=== PATIENT | female | born 1985 | race Two or more races ===

== ENCOUNTER 2019-09-16 19:31 | Emergency (ER) | payer OTHER ==
[~2019-09-16] VITALS: Ht 165.1 cm; Wt 90.9 kg
--- NOTE | 2019-09-16 19:52 | PHYS DOC ---
Adult General Chief Complaint Chief Complaint: SHORTNESS OF BREATH HPI HPI 34-year-old female presents to the emergency department complaints of cough x1 week, dizziness x2 days, shortness of breath today. Patient denies any fever, she does describe chest pain with cough. Patient denies abdominal pain nausea or vomiting. She did not receive her influenza vaccine. EKG reviewed normal sinus rhythm, heart rate 83. Nothing makes her symptoms better. She is tried no tvie-fin-dyueogf medications. Review of Systems Review of Systems Constitutional: Denies fever or chills [] Eyes: Denies change in visual acuity, redness, or eye pain [] HENT: Denies nasal congestion or sore throat [] Respiratory: Cough, shortness of breath Cardiovascular: No additional information not addressed in HPI [] GI: Denies abdominal pain, nausea, vomiting, bloody stools or diarrhea [] : Denies dysuria or hematuria [] Musculoskeletal: Denies back pain or joint pain [] Integument: Denies rash or skin lesions [] Neurologic: Denies headache, focal weakness or sensory changes [] All other systems were reviewed and found to be within normal limits, except as documented in this note. Current Medications Current Medications Current Medications Medications (Trade) Dose Ordered Sig/Stefani Start Time Stop Time Status Last Admin Dose Admin Sodium Chloride 1,000 ml @ 1,000 mls/hr Q1H 09/16/19 20:00 09/16/19 20:59 09/16/19 20:00 1,000 MLS/HR Allergies Allergies Allergies Coded Allergies Type Severity Reaction Last Updated Verified No Known Drug Allergies 09/16/19 No Physical Exam Physical Exam Constitutional: Well developed, well nourished, no acute distress, non-toxic appearance. [] HENT: Normocephalic, atraumatic, bilateral external ears normal, oropharynx moist, no oral exudates, nose normal. [] Eyes: PERRLA, EOMI, conjunctiva normal, no discharge. [] Cardiovascular:Heart rate regular rhythm, no murmur [] Lungs & Thorax: Bilateral breath sounds clear to auscultation [] Abdomen: Bowel sounds normal, soft, no tenderness, no masses, no pulsatile masses. [] Skin: Warm, dry, no erythema, no rash. [] Back: No tenderness, no CVA tenderness. [] Extremities: No tenderness, no edema. [] Neurologic: Alert and oriented X 3, no focal deficits noted. [] Psychologic: Affect normal, judgement normal, mood normal. [] Current Patient Data Vital Signs Vital Signs Date Time Temp Pulse Resp B/P (MAP) Pulse Ox O2 Delivery O2 Flow Rate FiO2 09/16/19 19:37 98.6 87 16 168/106 (126) 100 Room Air 98.6 Lab Values Laboratory Tests Test 09/16/19 19:40 09/16/19 19:46 09/16/19 19:48 09/16/19 19:56 Urine Collection Type Unknown Urine Color Yellow Urine Clarity Cloudy Urine pH 6.0 (<5.0-8.0) Urine Specific Earle >=1.030 (1.000-1.030) Urine Protein Negative mg/dL (NEG-TRACE) Urine Glucose (UA) Negative mg/dL (NEG) Urine Ketones (Stick) Negative mg/dL (NEG) Urine Blood Negative (NEG) Urine Nitrite Negative (NEG) Urine Bilirubin Small (NEG) Urine Urobilinogen Dipstick 1.0 mg/dL (0.2 mg/dL) Urine Leukocyte Esterase Negative (NEG) Urine RBC Occ /HPF (0-2) Urine WBC 0 /HPF (0-4) Urine Squamous Epithelial Cells Many /LPF Urine Bacteria Moderate /HPF (0-FEW) Urine Mucus Marked /LPF Influenza Type A Antigen Negative (NEGATIVE) Influenza Type B Antigen Negative (NEGATIVE) POC Urine HCG, Qualitative Hcg negative (Negative) White Blood Count 11.2 x10^3/uL (4.0-11.0) H Red Blood Count 4.53 x10^6/uL (3.50-5.40) Hemoglobin 14.1 g/dL (12.0-15.5) Hematocrit 40.2 % (36.0-47.0) Mean Corpuscular Volume 89 fL (79-100) Mean Corpuscular Hemoglobin 31 pg (25-35) Mean Corpuscular Hemoglobin Concent 35 g/dL (31-37) Red Cell Distribution Width 12.8 % (11.5-14.5) Platelet Count 264 x10^3/uL (140-400) Neutrophils (%) (Auto) 47 % (31-73) Lymphocytes (%) (Auto) 42 % (24-48) Monocytes (%) (Auto) 9 % (0-9) Eosinophils (%) (Auto) 2 % (0-3) Basophils (%) (Auto) 1 % (0-3) Neutrophils # (Auto) 5.2 x10^3/uL (1.8-7.7) Lymphocytes # (Auto) 4.7 x10^3/uL (1.0-4.8) Monocytes # (Auto) 1.0 x10^3/uL (0.0-1.1) Eosinophils # (Auto) 0.2 x10^3/uL (0.0-0.7) Basophils # (Auto) 0.1 x10^3/uL (0.0-0.2) D-Dimer (Antonia) < 0.27 ug/mlFEU Troponin I Quantitative < 0.017 ng/mL (0.000-0.055) VX-Lpu-S-Type Natriuretic Peptide 32 pg/mL (0-124) Laboratory Tests 09/16/19 19:56 EKG EKG EKG reviewed, 1947, heart rate 83, normal axis, no STEMI, normal sinus rhythm [] Radiology/Procedures Radiology/Procedures [facility] [address] [place] [address] IMAGING REPORT Signed PATIENT: GABINO MATOS ACCOUNT: [id number] : 1985 LOCATION: ER AGE: 34 SEX: F EXAM STATUS: REG ER ORD. PHYSICIAN: CESAR CISNEROS MD REASON: SOB PROCEDURE: PORTABLE CHEST 1V Exam: Chest one view INDICATION: Short of breath TECHNIQUE: Frontal view of the chest Comparisons: None FINDINGS: The cardiomediastinal silhouette and pulmonary vessels are within normal limits. The lung and pleural spaces are clear. IMPRESSION: No acute cardiopulmonary process. Electronically signed by: Bubba Hernandez MD (09/16/2019 8:19 PM) [id number] DICTATED and SIGNED BY: BBUBA HERNANDEZ MD DATE: 09/16/192018 [] Course & Med Decision Making Course & Med Decision Making Pertinent Labs and Imaging studies reviewed. (See chart for details) []34-year-old female presents to the emergency department complaints of cough x1 week, dizziness x2 days, shortness of breath today. Patient denies any fever, she does describe chest pain with cough. Patient denies abdominal pain nausea or vomiting. She did not receive her influenza vaccine. EKG reviewed normal sinus rhythm, heart rate 83. Nothing makes her symptoms better. She is tried no qndv-poy-kodscrj medications. X-ray of the chest reveals no consolidation, pulmonary edema Influenza negative, white blood cell count, urinalysis unremarkable Patient without wheeze. Recommend follow-up with primary care physician as an outpatient Albuterol prescription provided Dragon Disclaimer Dragon Disclaimer This electronic medical record was generated, in whole or in part, using a voice recognition dictation system. Departure Departure Impression: Primary Impression: Dyspnea Additional Impression: Cough Disposition: HOME, SELF-CARE Condition: STABLE Referrals: KARLA LOBO MD (PCP) Patient Instructions: Shortness of Breath, Hjyg-le-Fslu Additional Instructions: Chest xray negative for fluid/consolidation Labs reviewed - influenza negative, ddimer normal limits Albuterol inhaler upon discharge - you did not have wheeze on exam Tylenol as needed for fever If you develop fever, recommend quarantine for 14 days Return to the ER with worsening respiratory symptoms, inability to breath Scripts Albuterol Sulfate (PROAIR HFA INHALER) 8.5 Gm Hfa.aer.ad 2 PUFF INH PRN Q6HRS PRN for SHORTNESS OF BREATH, #1 INHALER 0 Refills Prov: CESAR CISNEROS MD 09/16/19 Problem Qualifiers Primary Impression: Dyspnea Dyspnea type: unspecified Qualified Codes: R06.00 - Dyspnea, unspecified CESAR CISNEROS MD Sep 16, 2019 19:52
[2019-09-16 19:53] LABS: BILIRUBIN,URINE SMALL (NEG); CLARITY,URINE CLOUDY; COLOR,URINE YELLOW; NITRITE,URINE NEGATIVE (NEG); PROTEIN,URINE NEGATIVE (NEG-TRACE)
[2019-09-16 20:00] LABS: BACTERIA,URINE MODERATE /HPF (0-FEW); RBC,URINE OCC /HPF (0-2); SQUAMOUS EPITHELIAL CELL,UR MANY /LPF; WBC,URINE 0 /HPF (0-4)
[2019-09-16] MEDS ORDERED: IV NORMAL SALINE 1000ML BAG 1,000 ML IV SCH (20:00)
[2019-09-16 20:05] LABS: BASO # 0.1 x10^3/uL (0.0-0.2); BASO % 1 % (0-3); EOS # 0.2 x10^3/uL (0.0-0.7); EOS % 2 % (0-3); HEMATOCRIT 40.2 % (36.0-47.0); HEMOGLOBIN 14.1 g/dL (12.0-15.5); LYMPH # 4.7 x10^3/uL (1.0-4.8); LYMPH % 42 % (24-48); MEAN CORPUSCULAR HEMOGLOBIN 31 pg (25-35); MEAN CORPUSCULAR HGB CONC 35 g/dL (31-37); MEAN CORPUSCULAR VOLUME 89 fL (79-100); MONO % 9 % (0-9); NEUT # 5.2 x10^3/uL (1.8-7.7); NEUT % 47 % (31-73); PLATELET COUNT 264 x10^3/uL (140-400); RED BLOOD COUNT 4.53 x10^6/uL (3.50-5.40); RED CELL DISTRIBUTION WIDTH 12.8 % (11.5-14.5); WHITE BLOOD COUNT 11.2 x10^3/uL (4.0-11.0)
--- NOTE | 2019-09-16 20:22 | RAD ---
Exam: Chest one view INDICATION: Short of breath TECHNIQUE: Frontal view of the chest Comparisons: None FINDINGS: The cardiomediastinal silhouette and pulmonary vessels are within normal limits. The lung and pleural spaces are clear. IMPRESSION: No acute cardiopulmonary process. Electronically signed by: Bubba Warren MD (09/16/2019 8:19 PM) [id number]
[2019-09-16 20:30] LABS: INFLUENZA A PATIENT NEGATIVE (NEGATIVE); INFLUENZA B PATIENT NEGATIVE (NEGATIVE)
[2019-09-16 20:33] LABS: CALCIUM 8.9 mg/dL (8.5-10.1); CREATININE 0.8 mg/dL (0.6-1.0); GFR 81.6; POTASSIUM 3.9 mmol/L (3.5-5.1)
[2019-09-16] MEDS ORDERED: ALBU2.5V8 INH (20:38)
[2019-09-16 20:39] VITALS: BP 123/77
[2019-09-16 20:39] LABS: ALBUMIN 3.5 g/dL (3.4-5.0); ALBUMIN/GLOBULIN RATIO 1.1 (1.0-1.7); TOTAL BILIRUBIN 0.2 mg/dL (0.2-1.0); TOTAL PROTEIN 6.8 g/dL (6.4-8.2)
--- NOTE | 2019-09-16 21:43 | EKG ---
[facility] [address] [place] [address] Test Date: 2019-09-16 Test Time: 19:44:43 Pat Name: GABINO MATOS Department: Room: Gender: F [employer] Machine: : 1985 Requested By: CESAR CISNEROS Order Number: [id number] Reading MD: Measurements Intervals [place] Rate: 83 P: 36 IA: 152 QRS: 47 QRSD: 80 T: 19 QT: 370 QTc: 440 Interpretive Statements SINUS RHYTHM NORMAL ECG RI6.01 No previous ECG available for comparison
== END 2019-09-16 20:40 | disposition home or self-care (01) ==
LOC: ER 19:31
DX: R06.02 Shortness of breath (principal); R05 Cough; R42 Dizziness and giddiness
CPT/HCPCS: 36415; 71045; 80053; 81001; 81025; 83880; 84484; 85025; 85379; 87086; 87804; 93005; 96360; 99285; J7030

== ENCOUNTER → 2020-08-14 | Outpatient (CLI) | payer BC, OTHER ==
[~2020-08-14] MED LIST: ALBU2.5V8 INH
--- NOTE | 2020-08-15 02:42 | RAD ---
PA and lateral chest radiographs 08/14/2020 CLINICAL HISTORY: Pleuritic chest pain and malaise. PA and lateral digital radiographs of the chest were obtained. Comparison study is dated 09/16/2019. The cardiac and mediastinal silhouettes are within normal limits in size and configuration. No pulmon jose f infiltrate is seen. No pleural effusion or pneumothorax is noted. Mild degenerative changes are s een involving the thoracic spine. IMPRESSION: No acute abnormality is seen. Electronically signed by: Jassi Prajapati MD (08/15/2020 2:40 AM) [id number]
== END ==
LOC: RAD 16:27
PROVIDERS: ATTEND Physician Assistant Medical
DX: R07.81 Pleurodynia (principal); R53.81 Other malaise
CPT/HCPCS: 71046

== ENCOUNTER → 2021-10-18 | Outpatient (CLI) | payer BC, OTHER ==
--- NOTE | 2021-10-18 12:46 | CARD ---
MR#: [id number] Date of Study: 10/18/2021 Ordering Physician: ELISA JARVIS, Referring Physician: ELISA JARVIS, Tech: Manisha Field [facility] APPROVED REPORT EXAM: Two-dimensional and M-mode echocardiogram with Doppler and color Doppler. Other Information Quality : AverageHR: 59bpm Rhythm : NSR INDICATION Dyspnea RISK FACTORS Hypertension Obesity 2D DIMENSIONS RVDd3.8 (2.9-3.5cm)Left Atrium(2D)3.5 (1.6-4.0cm) IVSd1.0 (0.7-1.1cm)Aortic Root(2D)3.0 (2.0-3.7cm) LVDd4.6 (3.9-5.9cm)LVOT Diameter2.1 (1.8-2.4cm) PWd1.0 (0.7-1.1cm)IVSs1.3 (0.8-1.2cm) LVDs2.8 (2.5-4.0cm)FS (%) 39.4 % PWs1.5 (0.8-1.2cm)SV69.7 ml Aortic Valve AoV Peak Arvin.119.0cm/sAoV VTI23.7cm AO Peak GR.5.7mmHgLVOT Peak Arvin.84.6cm/s LVOT VTI 19.00cmAO Mean GR.3mmHg MOJGAN (VMAX)1.43ji0KQR (VTI)2.87cm2 Mitral Valve MV E Bwujwtax34.4cm/sMV DECEL LOBO133rn MV A Bofazaol59.5cm/sMV LCR12gb E/A Ratio1.5MVA (PHT)3.66cm2 TDI E/Lateral E'5.2E/Medial E'7.1 LEFT VENTRICLE The left ventricle is normal size. There is normal left ventricular wall thickness. The left ventricu lar systolic function is normal. LV ejection fraction of 55 to 60%. There is normal LV segmental wall motion. Transmitral Doppler flow pattern is Grade I-abnormal relaxation pattern. RIGHT VENTRICLE The right ventricle is normal size. There is normal right ventricular wall thickness. The right ventr icular systolic function is normal. ATRIA The left atrium size is normal. The right atrium size is normal. The interatrial septum is intact wit h no evidence for an atrial septal defect or patent foramen ovale as noted on 2-D or Doppler imaging. AORTIC VALVE The aortic valve is normal in structure and function. Doppler and Color Flow revealed no significant aortic regurgitation. There is no significant aortic valvular stenosis. MITRAL VALVE The mitral valve is normal in structure and function. There is no evidence of mitral valve prolapse. There is no mitral valve stenosis. Doppler and Color-flow revealed trace mitral regurgitation. TRICUSPID VALVE The tricuspid valve is normal in structure and function. Doppler and Color Flow revealed trace tricus pid regurgitation. Estimated PAP 20 mmHg. There is no tricuspid valve stenosis. PULMONIC VALVE The pulmonary valve is normal in structure and function. Doppler and Color Flow revealed no pulmonic valvular regurgitation. GREAT VESSELS The aortic root is normal in size. The ascending aorta is normal in size. The IVC is normal in size a nd collapses >50% with inspiration. PERICARDIAL EFFUSION There is no evidence of significant pericardial effusion. Critical Notification Critical Value: No <Conclusion> The left ventricle is normal size. The left ventricular systolic function is normal. LV ejection fraction of 55 to 60%. There is normal LV segmental wall motion. There is normal left ventricular wall thickness. Doppler and Color Flow revealed no significant aortic regurgitation. There is no significant aortic valvular stenosis. Doppler and Color-flow revealed trace mitral regurgitation. Doppler and Color Flow revealed trace tricuspid regurgitation. Estimated PAP 20 mmHg. Signed by : Giovani Rubio MD Electronically Approved : 10/18/2021 12:46:20
== END ==
LOC: ECHO 09:35
PROVIDERS: ATTEND Physician Assistant Medical
DX: R05.9 Cough, unspecified (principal); R53.83 Other fatigue; R60.9 Edema, unspecified
CPT/HCPCS: 93306; C8929